=== PATIENT | male | born 1975 | race Caucasian/White ===

== ENCOUNTER 2021-02-17 19:05 | Emergency (ER) | payer OTHER ==
[2021-02-17 21:40] LABS: HEMOGLOBIN 15.9 gm/dl (14.0-17.5); RED BLOOD COUNT 5.12 M/UL (4.20-5.50); WHITE BLOOD COUNT 13.2 K/UL (4.5-11.0)
[2021-02-17 22:07] LABS: BUN/CREATININE RATIO 15 (0-10)
== END 2021-02-18 00:13 | disposition home or self-care (01) ==
LOC: ER1 19:05
PROVIDERS: Physician Assistant
DX: S89.92XA Unspecified injury of left lower leg, initial encounter (principal); R07.89 Other chest pain; E11.9 Type 2 diabetes mellitus without complications; I10 Essential (primary) hypertension; X58.XXXA Exposure to other specified factors, initial encounter; Z88.2 Allergy status to sulfonamides; Z88.8 Allergy status to other drugs, medicaments and biological substances
CPT/HCPCS: 71045; 73590; 80053; 82550; 82553; 83874; 83880; 84484; 85025; 93005; 99285; Q9967

== ENCOUNTER 2021-05-04 21:38 | Emergency (ER) | payer OTHER ==
[2021-05-04] MEDS ORDERED: HYDROCODON-ACE1 EAC4 PO ×2 (22:27→22:30)
== END 2021-05-04 23:24 | disposition home or self-care (01) ==
LOC: ER1 21:38
DX: S52.91XD Unspecified fracture of right forearm, subsequent encounter for closed fracture with routine healing (principal); E11.9 Type 2 diabetes mellitus without complications; I10 Essential (primary) hypertension; E78.5 Hyperlipidemia, unspecified; E03.9 Hypothyroidism, unspecified; E04.9 Nontoxic goiter, unspecified; F17.290 Nicotine dependence, other tobacco product, uncomplicated; Z79.899 Other long term (current) drug therapy; Z88.2 Allergy status to sulfonamides; Z88.5 Allergy status to narcotic agent; Z88.6 Allergy status to analgesic agent; Z88.8 Allergy status to other drugs, medicaments and biological substances; X58.XXXD Exposure to other specified factors, subsequent encounter
CPT/HCPCS: 99283

== ENCOUNTER → 2022-03-24 | Outpatient (CLI) | payer OTHER ==
[~2022-03-24] MED LIST: ABILIFY2 MG PO; ALLOPURINOL300 MG PO; AMLODIPINE BESYL5 MG PO; ASPIRIN81 MG PO; ATORVASTATIN CA20 MG PO; GABAPENTIN600 MG PO; HYDROCHLOROTH12.5 M1 PO; HYDROCODON-ACE1 EAC4 PO; JANUVIA100 MG PO; KEPPRA 250 MG250 MG PO; KEPPRA 500 MG500 MG PO; LEVOTHYROXINE75 MCG PO; LEXAPRO20 MG PO; LORATADINE10 MG PO; LOSARTAN POTAS100 MG PO; METFORMIN HCL1000 MG PO; OMEPRAZOLE20 M2 PO; PROAIR DIGIHAL90 MCG PO; TOPIRAMATE50 MG PO; TRAZODONE HCL50 MG PO; TYLENOL EXTRA500 MG PO
== END ==
LOC: EXRD 11:29
DX: M25.561 Pain in right knee (principal)
CPT/HCPCS: 73564

== ENCOUNTER → 2022-05-02 | Outpatient (CLI) | payer OTHER | LOC: KOH-I 09:16 | DX: E78.2 Mixed hyperlipidemia (principal); R79.89 Other specified abnormal findings of blood chemistry; K76.0 Fatty (change of) liver, not elsewhere classified | CPT/HCPCS: 76700 ==